=== PATIENT | male | born 1960 | race Caucasian/White ===

== ENCOUNTER 2020-11-24 07:55 | Outpatient (CLI) | payer OTHER ==
[~2020-11-24 07:55] MED LIST: CIPRO500 MG PO; OFLOXACIN5 ML OTIC
== END 2020-11-24 08:19 | disposition home or self-care (01) ==
LOC: SONOGRAMA 07:55 → MAMO-SONO 08:00 → SONOGRAMA 08:19
DX: K74.69 Other cirrhosis of liver (principal)

== ENCOUNTER 2022-09-07 07:34 | Outpatient (CLI) | payer OTHER | END 2022-09-07 07:45 | disposition home or self-care (01) | LOC: SONOGRAMA 07:34 | PROVIDERS: ATTEND General Practice | DX: B19.20 Unspecified viral hepatitis C without hepatic coma (principal) ==

== ENCOUNTER → 2023-05-19 11:09 | Outpatient (CLI) | payer OTHER | END | disposition home or self-care (01) | LOC: NUCLEAR 11:00 | PROVIDERS: ATTEND General Practice | DX: I70.90 Unspecified atherosclerosis (principal); I65.23 Occlusion and stenosis of bilateral carotid arteries ==

== ENCOUNTER → 2023-06-20 13:52 | Outpatient (CLI) | payer OTHER ==
[2023-06-20 15:20] LABS: CREATININE SERUM 1.03 mg/dL (0.70-1.30)
== END | disposition home or self-care (01) ==
LOC: LAB 13:52
PROVIDERS: ATTEND Internal Medicine Hematology & Oncology
DX: I10 Essential (primary) hypertension (principal)

== ENCOUNTER 2023-06-21 10:34 | Outpatient (CLI) | payer OTHER | END 2023-06-21 10:51 | disposition home or self-care (01) | LOC: MRI 10:34 | PROVIDERS: ATTEND Internal Medicine Hematology & Oncology | DX: D75.89 Other specified diseases of blood and blood-forming organs (principal); D51.3 Other dietary vitamin B12 deficiency anemia; E03.8 Other specified hypothyroidism; B18.2 Chronic viral hepatitis C; F33.9 Major depressive disorder, recurrent, unspecified; F41.3 Other mixed anxiety disorders; I70.91 Generalized atherosclerosis; E04.2 Nontoxic multinodular goiter | CPT/HCPCS: 70553; 76536; Q9965 ==

== ENCOUNTER 2023-08-10 09:49 | Outpatient (CLI) | payer OTHER ==
[2023-08-10 10:42] LABS: HEMATOCRIT 42.8 % (39.0-48.0); HEMOGLOBIN 14.6 g/dL (13-16.00); MEAN CELL VOLUME 93.9 fL (80.0-100.00); MEAN CORPUSCULAR HGB CONC 34.1 g/dl (32.0-36.0); PLATELET COUNT 144 K/uL (150-450); RED BLOOD COUNT 4.56 M/uL (4.00-6.00)
[2023-08-10 11:24] LABS: ALBUMIN 3.9 gm/dL (3.4-5.0); BILIRUBIN TOTAL 0.73 mg/dL (0.3-1.2); CALCIUM 9.3 mg/dL (8.5-10.1); CREATININE SERUM 1.03 mg/dL (0.70-1.30); FERRITIN 100.4 NG/ML (26-388); GFR 72.7; GLOBULINA 3.3 G/DL (2.4-3.5); POTASSIUM 4.24 mEq/L (3.5-5.1); T4 FREE 1.19 NG/ML (0.76-1.46); TOTAL PROTEIN 7.2 gm/dL (6.4-8.2)
[2023-08-10 12:11] LABS: MANUAL PLATELET COUNT 312
[2023-08-10 12:12] LABS: PLATELET ESTIMATE NORMAL (NORMAL)
[2023-08-10 13:27] LABS: FOLIC ACID 12.7 ng/ml (4.78-20)
[2023-08-11 08:07] LABS: ANTI THYROID PEROXIDASE < 9 IU/mL (0-34)
[2023-08-11 10:11] LABS: TRANSFERIN 302 mg/dL (177-329)
[2023-08-11 16:07] LABS: hgb a 97.4 % (96.4-98.8); hgb a2 2.6 % (1.8-3.2); hgb f 0 % (0.0-2.0); hgb s 0 % (0.0)
== END 2023-08-10 10:02 | disposition home or self-care (01) ==
LOC: LAB 09:49
PROVIDERS: ATTEND Internal Medicine Hematology & Oncology
DX: D50.8 Other iron deficiency anemias (principal); D75.89 Other specified diseases of blood and blood-forming organs; D51.3 Other dietary vitamin B12 deficiency anemia; E03.8 Other specified hypothyroidism; F33.9 Major depressive disorder, recurrent, unspecified; F41.3 Other mixed anxiety disorders; I70.91 Generalized atherosclerosis

== ENCOUNTER 2024-03-23 11:30 | Outpatient (CLI) | payer OTHER | END 2024-03-23 11:42 | disposition home or self-care (01) | LOC: RAD 11:30 | PROVIDERS: ATTEND Internal Medicine Pulmonary Disease | DX: R91.1 Solitary pulmonary nodule (principal) ==

== ENCOUNTER 2024-04-27 09:03 | Outpatient (CLI) | payer OTHER | END 2024-04-27 09:04 | disposition home or self-care (01) | LOC: NUCLEAR 09:03 | PROVIDERS: ATTEND General Practice | DX: I65.23 Occlusion and stenosis of bilateral carotid arteries (principal) ==

== ENCOUNTER 2024-10-09 11:32 | Outpatient (CLI) | payer OTHER | END 2024-10-09 11:49 | disposition home or self-care (01) | LOC: SONOGRAMA 11:32 | PROVIDERS: ATTEND Surgery | DX: R31.29 Other microscopic hematuria (principal) ==

== ENCOUNTER 2025-05-24 12:54 | Outpatient (CLI) | payer OTHER | END 2025-05-24 13:12 | disposition home or self-care (01) | LOC: MRI 12:54 | DX: I72.9 Aneurysm of unspecified site (principal); I65.1 Occlusion and stenosis of basilar artery; I65.09 Occlusion and stenosis of unspecified vertebral artery; I65.29 Occlusion and stenosis of unspecified carotid artery; Q28.2 Arteriovenous malformation of cerebral vessels | CPT/HCPCS: 70544 ==